=== PATIENT | female | born 1970 | race Caucasian/White ===

== ENCOUNTER → 2016-07-23 20:06 | Outpatient (CLI) | payer BC | END | disposition home or self-care (01) | LOC: D.MAMMO 13:30 | DX: R92.8 Other abnormal and inconclusive findings on diagnostic imaging of breast (principal) ==

== ENCOUNTER → 2017-01-06 18:07 | Outpatient (CLI) | payer BC | END | disposition home or self-care (01) | LOC: D.MAMMO 13:00 | DX: R92.8 Other abnormal and inconclusive findings on diagnostic imaging of breast (principal) ==

== ENCOUNTER 2017-06-20 12:55 | Emergency (ER) | payer BC ==
[2017-06-20 13:34] LABS: APPEARANCE CLEAR (CLEAR); BILIRUBIN NEGATIVE (NEGATIVE); COLOR YELLOW (YELLOW); GLUCOSE NEGATIVE (NEGATIVE); KETONE MODERATE mg/dL (NEGATIVE); NITRITE NEGATIVE (NEGATIVE); PROTEIN NEGATIVE (NEGATIVE); SPECIFIC GRAVITY 1.015 (1.005-1.020); UROBILINOGEN NORMAL (NORMAL)
[2017-06-20 13:35] LABS: BACTERIA MODERATE /hpf (NONE SEEN); EPITHELIAL CELLS 0-5 /hpf (0-5); RED CELLS - URINE 0-5 /hpf (0-5); WHITE CELLS - URINE 0-5 /hpf (0-5)
[2017-06-20 13:41] LABS: BASOPHILS 0.1 % (0-2); EOSINOPHILS 0 % (0-7); HEMATOCRIT 41.3 % (36.0-48.0); HEMOGLOBIN 14.5 g/dL (12-16); IMMATURE GRANULOCYTES 0.2 % (0-5); LYMPHOCYTES 5.8 % (15-50); MCH 31.2 pg (26.0-34.0); MCHC 35.1 g/dL (31.0-37.0); MCV 88.8 fL (80.0-100.0); MEAN PLATELET VOLUME 10.3 fL (7.4-10.4); MONOCYTES 4.4 % (2-11); NEUTROPHILS 89.5 % (40-80); PLATELET COUNT 218 10x3/uL (130-400); RBC 4.65 10x6/uL (4.00-5.40); RDW 12.5 % (11.5-14.5); WBC 16.1 10x3/uL (4.8-10.8)
[2017-06-20 14:11] LABS: ALBUMIN 3.8 g/dL (3.4-5.0); ANION GAP 16.1 mmol/L (8-16); BILIRUBIN - TOTAL 0.74 mg/dL (0.2-1.3); CALCIUM 8.6 mg/dL (8.5-10.1); CARBON DIOXIDE 21.7 mmol/L (21.0-32.0); CREATININE - SERUM 1.1 mg/dL (0.6-1.3); POTASSIUM - SERUM 3.8 mmol/L (3.5-5.1); PROTEIN - SERUM 7.7 g/dL (6.4-8.2)
[2017-06-21] MEDS ORDERED: HYDROCODONE-APA1 TAB PO (01:25)
[2017-06-21] MEDS ORDERED: IMITREX (01:27)
[2017-06-21] MEDS ORDERED: TOPAMAX100 MG PO (01:28)
[2017-06-21] MEDS ORDERED: CYCLOBENZAPRINE5 MG PO (01:29)
[2017-06-23 14:43] VITALS: BMI 28.7
== END 2017-06-20 16:05 | disposition home or self-care (01) ==
LOC: D.ER 12:55
PROVIDERS: Family Medicine
DX: R10.9 Unspecified abdominal pain (principal); R11.2 Nausea with vomiting, unspecified

== ENCOUNTER 2017-06-20 21:43 | Inpatient (IN) | payer BC ==
[~2017-06-20] VITALS: Ht 167.6 cm; Wt 80.7 kg
[2017-06-21] MEDS ORDERED: HYDROCODONE-APA1 TAB PO (01:25)
[2017-06-21] MEDS ORDERED: IMITREX (01:27)
[2017-06-21] MEDS ORDERED: TOPAMAX100 MG PO (01:28)
[2017-06-21] MEDS ORDERED: CYCLOBENZAPRINE5 MG PO (01:29)
[2017-06-21 02:51] VITALS: BP 124/68
[2017-06-21 03:14] VITALS: BP 124/68; BMI 28.8
[2017-06-21 08:24] VITALS: BP 145/87
[2017-06-21 12:06] VITALS: BP 157/87
[2017-06-21 16:10] VITALS: BP 120/70
[2017-06-21 22:12] VITALS: BP 114/56
[2017-06-22 02:11] VITALS: BP 142/84
[2017-06-22 05:20] LABS: BASOPHILS 0.2 % (0-2); EOSINOPHILS 0.4 % (0-7); HEMATOCRIT 34.7 % (36.0-48.0); HEMOGLOBIN 11.6 g/dL (12-16); IMMATURE GRANULOCYTES 0.2 % (0-5); LYMPHOCYTES 14.7 % (15-50); MCH 30.1 pg (26.0-34.0); MCHC 33.4 g/dL (31.0-37.0); MCV 89.9 fL (80.0-100.0); MEAN PLATELET VOLUME 10.9 fL (7.4-10.4); MONOCYTES 7.2 % (2-11); NEUTROPHILS 77.3 % (40-80); RBC 3.86 10x6/uL (4.00-5.40); RDW 12.4 % (11.5-14.5)
[2017-06-22 05:25] LABS: PLATELET COUNT 167 10x3/uL (130-400); WBC 9.2 10x3/uL (4.8-10.8)
[2017-06-22 05:36] LABS: ANION GAP 8.4 mmol/L (8-16); BILIRUBIN - TOTAL 0.5 mg/dL (0.2-1.3); CALCIUM 8.3 mg/dL (8.5-10.1); CARBON DIOXIDE 27.1 mmol/L (21.0-32.0); POTASSIUM - SERUM 3.5 mmol/L (3.5-5.1); PROTEIN - SERUM 6.3 g/dL (6.4-8.2)
[2017-06-22 06:42] VITALS: BP 120/69
[2017-06-22 09:07] VITALS: BP 155/81
[2017-06-22 16:05] VITALS: BP 158/90
[2017-06-22 21:19] VITALS: BP 144/86
[2017-06-23 00:41] VITALS: BP 148/84
[2017-06-23 04:40] LABS: BASOPHILS 0.2 % (0-2); EOSINOPHILS 1.2 % (0-7); HEMATOCRIT 33.8 % (36.0-48.0); HEMOGLOBIN 11.5 g/dL (12-16); IMMATURE GRANULOCYTES 0.4 % (0-5); LYMPHOCYTES 17.8 % (15-50); MCH 30.2 pg (26.0-34.0); MCV 88.7 fL (80.0-100.0); MONOCYTES 8.7 % (2-11); NEUTROPHILS 71.7 % (40-80); PLATELET COUNT 160 10x3/uL (130-400); RBC 3.81 10x6/uL (4.00-5.40); RDW 12.2 % (11.5-14.5); WBC 8.3 10x3/uL (4.8-10.8)
[2017-06-23 05:01] VITALS: BP 154/84
[2017-06-23 05:10] LABS: ALBUMIN 2.8 g/dL (3.4-5.0); ANION GAP 10.7 mmol/L (8-16); BILIRUBIN - TOTAL 0.56 mg/dL (0.2-1.3); CALCIUM 8.1 mg/dL (8.5-10.1); CARBON DIOXIDE 27.5 mmol/L (21.0-32.0); CREATININE - SERUM 0.9 mg/dL (0.6-1.3); POTASSIUM - SERUM 3.2 mmol/L (3.5-5.1)
[2017-06-23 10:27] VITALS: BP 154/92
[2017-06-23 14:43] VITALS: Ht 167.6 cm; Wt 80.7 kg
[2017-06-23 18:18] VITALS: BP 156/97
[2017-06-23 20:44] VITALS: BP 106/73
[2017-06-24 01:24] VITALS: BP 124/74
[2017-06-24 05:00] VITALS: BP 145/77
[2017-06-24 06:57] LABS: BASOPHILS 0.2 % (0-2); EOSINOPHILS 1.4 % (0-7); HEMATOCRIT 34.9 % (36.0-48.0); HEMOGLOBIN 12.3 g/dL (12-16); IMMATURE GRANULOCYTES 0.1 % (0-5); LYMPHOCYTES 14.2 % (15-50); MCH 30.8 pg (26.0-34.0); MCHC 35.2 g/dL (31.0-37.0); MCV 87.3 fL (80.0-100.0); MEAN PLATELET VOLUME 11.1 fL (7.4-10.4); MONOCYTES 10.6 % (2-11); NEUTROPHILS 73.5 % (40-80); PLATELET COUNT 189 10x3/uL (130-400); WBC 8.6 10x3/uL (4.8-10.8)
[2017-06-24 07:34] LABS: ANION GAP 11.7 mmol/L (8-16); BILIRUBIN - TOTAL 0.7 mg/dL (0.2-1.3); CALCIUM 8.4 mg/dL (8.5-10.1); CARBON DIOXIDE 29.5 mmol/L (21.0-32.0); POTASSIUM - SERUM 3.2 mmol/L (3.5-5.1); PROTEIN - SERUM 6.4 g/dL (6.4-8.2)
[2017-06-24 08:12] VITALS: BP 138/75
[2017-06-24 11:51] VITALS: BP 152/52
[2017-06-24 16:08] VITALS: BP 147/92
[2017-06-24 20:21] VITALS: BP 123/82
[2017-06-25 01:06] VITALS: BP 128/84
[2017-06-25 04:47] VITALS: BP 134/84
[2017-06-25 05:14] LABS: BASOPHILS 0.4 % (0-2); EOSINOPHILS 2.2 % (0-7); HEMATOCRIT 37.4 % (36.0-48.0); HEMOGLOBIN 13.1 g/dL (12-16); IMMATURE GRANULOCYTES 0.4 % (0-5); LYMPHOCYTES 21.4 % (15-50); MCH 30.5 pg (26.0-34.0); MCV 87.2 fL (80.0-100.0); MONOCYTES 13.6 % (2-11); PLATELET COUNT 214 10x3/uL (130-400); RBC 4.29 10x6/uL (4.00-5.40); RDW 12.1 % (11.5-14.5); WBC 6.8 10x3/uL (4.8-10.8)
[2017-06-25 05:48] LABS: ALBUMIN 3.1 g/dL (3.4-5.0); ANION GAP 12.9 mmol/L (8-16); BILIRUBIN - TOTAL 0.66 mg/dL (0.2-1.3); CALCIUM 8.6 mg/dL (8.5-10.1); CARBON DIOXIDE 27.2 mmol/L (21.0-32.0); CREATININE - SERUM 0.9 mg/dL (0.6-1.3); POTASSIUM - SERUM 3.1 mmol/L (3.5-5.1); PROTEIN - SERUM 6.5 g/dL (6.4-8.2)
[2017-06-25 08:02] VITALS: BP 146/88
[2017-06-25 12:24] VITALS: BP 100/97
[2017-06-25] MEDS ORDERED: LEVAQUIN750 MG PO (13:10)
[2017-06-25] MEDS ORDERED: FLAGYL500 MG PO (13:10)
[2017-06-25] MEDS ORDERED: FLORAJEN3 CAPS460 MG PO (13:12)
[2017-06-25] MEDS ORDERED: HYDROCODONE-APA1 TAB PO (13:13)
[2017-06-27 20:42] LABS: OVA + PARASITE EXAM Final report (())
== END 2017-06-25 15:50 | disposition home or self-care (01) | DRG 389 ==
LOC: D.ER 21:43 → OBSVTIME 06-21 00:32 → D.EDHOLD 06-21 00:32 → D.MS 06-21 00:32
PROVIDERS: Family Medicine; Internal Medicine Gastroenterology
DX: K56.7 Ileus, unspecified (principal); N39.0 Urinary tract infection, site not specified; R64 Cachexia; R19.7 Diarrhea, unspecified; I10 Essential (primary) hypertension; E86.0 Dehydration; Z68.28 Body mass index [BMI] 28.0-28.9, adult

== ENCOUNTER 2019-03-31 09:00 | Outpatient (CLI) | payer BC ==
[2017-06-23 14:43] VITALS: BMI 28.7
[~2019-03-31 09:00] MED LIST: CYCLOBENZAPRINE5 MG PO; FLAGYL500 MG PO; FLORAJEN3 CAPS460 MG PO; HYDROCODONE-APA1 TAB PO; IMITREX; LEVAQUIN750 MG PO; TOPAMAX100 MG PO
== END 2019-03-31 10:00 | disposition home or self-care (01) ==
LOC: D.MAMMO 09:00
PROVIDERS: ATTEND Family Medicine
DX: Z12.31 Encounter for screening mammogram for malignant neoplasm of breast (principal)